=== PATIENT | male | born 1970 | race Caucasian/White ===

== ENCOUNTER 2019-10-23 23:00 | Emergency (ER) | payer MEDICAID ==
[~2019-10-23] VITALS: Ht 170.2 cm; Wt 75.0 kg
[2019-10-24] MEDS ORDERED: ONDANSETRON HCL 4MG/2ML INJ IV ONE
[2019-10-24] MEDS ORDERED: ONDANSETRON 4MG ODT PO STA (00:07)
[2019-10-24] MEDS ORDERED: MAGNESIUM/ALUMINUM HYDROXIDE/SIMETHICONE 30ML UDC PO STA (00:07)
[2019-10-24] MEDS ORDERED: DICYCLOMINE 10 MG/5 ML ORAL SYR PO STA (00:07)
[2019-10-24] MEDS ORDERED: VISCOUS LIDOCAINE 2% 15 ML UDC PO STA (00:07)
[2019-10-24 01:01] LABS: CLARITY URINE CLEAR (CLEAR); COLOR URINE YELLOW (YELLOW); KETONES URINE 4+ (NEGATIVE); LEUKOCYTE ESTERASE URINE NEGATIVE (NEGATIVE); NITRITE URINE NEGATIVE (NEGATIVE); OCCULT BLOOD URINE 3+ (NEGATIVE); PROTEIN URINE 1+ (NEGATIVE); SPECIFIC GRAVITY URINE 1.033 (1.005-1.030)
[2019-10-24 01:03] LABS: BASOPHILS % 0.2 % (0.0-2.0); HEMOGLOBIN. 16.2 g/dL (14.0-18.0); LYMPHOCYTES % 8.8 % (20.0-50.0); MEAN CORPUSCULAR VOLUME 88.8 fL (80.0-94.0); MEAN PLATELET VOLUME 9.1 fl (7.4-10.4); MONOCYTES % 5.4 % (2.0-8.0); NEUTROPHILS % 85.6 % (40.0-76.0); PLATELET 184 x1000/uL (130-400); RED BLOOD CELL COUNT 5.41 mill/uL (4.7-6.1); RED CELL DISTRIBUTION WIDTH 13.3 % (11.6-14.6)
[2019-10-24 01:09] LABS: CHLORIDE 101 mEq/L (98-107)
[2019-10-24 01:23] LABS: PROTHROMBIN TIME 10.8 sec (9.6-11.0)
[2019-10-24] MEDS ORDERED: SODIUM CHLORIDE 0.9% 1,000 ML IV ONE (02:00)
[2019-10-24] MEDS ORDERED: KETOROLAC 15MG/ML VIAL IV ONE (03:00)
[2019-10-24 03:45] VITALS: BP 133/79
== END 2019-10-24 03:54 | disposition home or self-care (01) ==
LOC: ER 23:00
DX: R10.9 Unspecified abdominal pain (principal); K52.9 Noninfective gastroenteritis and colitis, unspecified; E86.0 Dehydration
CPT/HCPCS: 36415; 80053; 81003; 83605; 83690; 85025; 85610; 93005; 96361; 96374; 96375; 99284; J1885; J2405; Q0162

== ENCOUNTER 2019-10-25 00:11 | Emergency (ER) | payer MEDICAID ==
[~2019-10-25] VITALS: Ht 170.2 cm; Wt 75.0 kg
[2019-10-25] MEDS ORDERED: KETOROLAC 60MG/2ML VIAL IM ONE (00:45)
[2019-10-25 01:29] LABS: CLARITY URINE CLEAR (CLEAR); COLOR URINE YELLOW (YELLOW); KETONES URINE 1+ (NEGATIVE); LEUKOCYTE ESTERASE URINE NEGATIVE (NEGATIVE); NITRITE URINE NEGATIVE (NEGATIVE); OCCULT BLOOD URINE TRACE (NEGATIVE); PROTEIN URINE NEGATIVE (NEGATIVE); SPECIFIC GRAVITY URINE 1.014 (1.005-1.030); UROBILINOGEN URINE 0.2 E.U./dL (0.2-1.0)
[2019-10-25 02:15] VITALS: BP 142/74
== END 2019-10-25 02:55 | disposition home or self-care (01) ==
LOC: EDBD 00:11 → ER 00:11
DX: N42.0 Calculus of prostate (principal); N13.30 Unspecified hydronephrosis
CPT/HCPCS: 76770; 81003; 96372; 99284; J1885

== ENCOUNTER 2023-04-08 05:02 | Emergency (ER) | payer BC, MEDICAID ==
[~2023-04-08] VITALS: Ht 170.2 cm; Wt 74.6 kg
[2023-04-08 05:21] VITALS: O2SAT 100
[2023-04-08 08:03] LABS: BASOPHILS % 0.1 % (0.0-2.0); HEMOGLOBIN. 15.4 g/dL (14.0-18.0); LYMPHOCYTES % 8.3 % (20.0-50.0); MEAN CORPUSCULAR HEMOGLOBIN 30.3 pg (28.0-32.0); MEAN CORPUSCULAR HGB CONC 33.5 g/dL (31.0-37.0); MEAN CORPUSCULAR VOLUME 90.3 fL (80.0-94.0); MEAN PLATELET VOLUME 8.9 fl (7.4-10.4); MONOCYTES % 2.5 % (2.0-8.0); NEUTROPHILS % 89.1 % (40.0-76.0); PLATELET 215 x1000/uL (130-400); RED BLOOD CELL COUNT 5.09 mill/uL (4.7-6.1); RED CELL DISTRIBUTION WIDTH 13.6 % (11.6-14.6); WHITE BLOOD COUNT 8.3 x1000/uL (4.5-11.0)
[2023-04-08 08:19] LABS: ALANINE AMINOTRANSFERASE 23 IU/L (10-49); ALBUMIN 4.7 g/dL (3.2-4.8); ASPARTATE AMINOTRANSFERASE 24 IU/L (<34); BILIRUBIN TOTAL 1.3 mg/dL (0.1-1.0); CALCIUM 9.5 mg/dL (8.7-10.4); CARBON DIOXIDE 28 mEq/L (21-32); CHLORIDE 106 mEq/L (98-107); CREATININE 0.9 mg/dL (0.6-1.3); GLUCOSE 114 mg/dL (70-105); POTASSIUM 4.2 mEq/L (3.5-5.1); PROTEIN TOTAL 7.8 g/dL (6.0-8.3); SODIUM 140 mEq/L (136-145); UREA NITROGEN BLOOD 20 mg/dL (9-23)
[2023-04-08] MEDS: KETOROLAC 60MG/2ML VIAL IM ONE (11:00)
[2023-04-08 11:17] LABS: CLARITY URINE CLEAR (CLEAR); COLOR URINE YELLOW (YELLOW); GLUCOSE URINE NEGATIVE (NEGATIVE); KETONES URINE 3+ (NEGATIVE); LEUKOCYTE ESTERASE URINE NEGATIVE (NEGATIVE); NITRITE URINE NEGATIVE (NEGATIVE); OCCULT BLOOD URINE 3+ (NEGATIVE); PROTEIN URINE TRACE (NEGATIVE)
[2023-04-08] MEDS ORDERED: OXYC-100 PO (11:21)
[2023-04-08 11:30] LABS: BACTERIA URINE NONE SEEN; RBC URINE 25-50 /hpf (0-2); SQUAMOUS EPITHELIAL CELL URINE RARE /lpf (RARE/1+); WBC URINE 0-2 /hpf (0-2); YEAST URINE NONE SEEN
[2023-04-08 12:21] VITALS: BP 152/90; PULSE 71; RESP 19; TEMP 97.9
== END 2023-04-08 12:24 | disposition home or self-care (01) ==
LOC: ER 05:32
DX: N23 Unspecified renal colic (principal)
CPT/HCPCS: 80053; 81003; 83690; 85025; 85610; 36415; 76700; 96372; 99285; J1885; Z7610